=== PATIENT | female | born 1985 | race Caucasian/White ===

== ENCOUNTER 2018-10-13 03:48 | Emergency (ER) | payer OTHER ==
[~2018-10-13] VITALS: Ht 172.7 cm; Wt 117.9 kg
[2018-10-13 03:50] VITALS: BP_SYST 156
--- NOTE | 2018-10-13 03:50 | NUR ---
Patient to ER bed H1 for evaluation.
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
--- NOTE | 2018-10-13 03:59 | NUR ---
ER Dr. Borges at bedside examining patient.
[2018-10-13] MEDS ORDERED: ACETAMINOPHEN 500 MG TABLET PO ONE (04:15)
[2018-10-13] MEDS ORDERED: ACETAMINOPHEN 500 MG TABLET ONE (04:23)
[2018-10-13] MEDS ORDERED: ACETAMINOPHEN 325 MG TABLET ONE (04:24)
[2018-10-13] MEDS ORDERED: cloNIDine HCL 0.1 MG TABLET PO ONE (04:30)
[2018-10-13] MEDS ORDERED: cloNIDine HCL 0.1 MG TABLET ONE (04:34)
--- NOTE | 2018-10-13 04:46 | NUR ---
Patient transported to radiology via gurney, accompanied by rad staff.
--- NOTE | 2018-10-13 04:52 | NUR ---
Pt returned in stable condition, will continue to monitor
[2018-10-13 05:10] VITALS: BP_SYST 138
--- NOTE | 2018-10-13 05:11 | NUR ---
Patient given written and verbal discharge instructions and verbalizes understanding. ER MD discussed with patient the results and treatment provided. Patient in stable condition. ID arm band removed. Rx of Ibuprofen and Augmentin given. Patient educated on pain management and to follow up with PMD. Pain Scale 0. Opportunity for questions provided and answered. Medication side effect fact sheet provided.
== END 2018-10-13 05:10 | disposition home or self-care (01) ==
LOC: SED 03:48
DX: S00.83XA Contusion of other part of head, initial encounter (principal); Z88.6 Allergy status to analgesic agent; Y04.1XXA Assault by human bite, initial encounter; Y93.89 Activity, other specified; Y92.89 Other specified places as the place of occurrence of the external cause; Y99.8 Other external cause status
CPT/HCPCS: 73140-TC; 99283